=== PATIENT | male | born 1940 | race Caucasian/White ===

== ENCOUNTER 2019-07-15 12:20 | Emergency (ER) | payer MEDICARE, SELFPAY ==
[2019-07-15] VITALS (22 sets, daily range): BP systolic 53–109; BP diastolic 31–63; PULSE 55–64; RESP 10–28; O2SAT 81–100; BMI 23.0
[2019-07-15] MEDS: sodium chloride 0.9% 1,000 ML 999 ML IV (12:20)
--- NOTE | 2019-07-15 12:22 | ED_ITS ---
Entered by Rajwinder Julien, acting as scribe for HPI - SOB/Dyspnea General: Chief Complaint: Cardiac Arrest/CPR Stated Complaint: post code Time Seen by Provider: 07/15/19 12:24 Source: patient and EMS Mode of arrival: EMS History of Present Illness: HPI Narrative: 78 yo male presents with aspiration at longterm. per EMS the pt was drinking milk and got to much then choked. per EMS the longterm started CPR for 2 minutes, when they arrived he was alert and talking. per pt is is not short of breath. per EMS his sats was low. EMS denied any other symptoms. MD elicited complaint: shortness of breath (with choking on milk) Pertinent past history: aspiration Onset (ago): hour(s) (just [employer]) Context: choking/aspiration (got to much milk) Timing: constant Severity: moderate Exacerbating factors: other Relieving factors: oxygen and upright position Treatment prior to arrival: CPR (2 minutes by nursing staff per EMS) Review of Systems General: Reports: 10 or more systems reviewed and unremarkable except as noted in History and below PFSH ED PFSH: Statuses (acute, chronic, etc) shown below reflect problem list status as previously entered and may not be historically accurate Social History Smoking and tobacco status: unknown if ever smoked Physical Exam Const: COMMON NORMALS: average body habitus, no limitations, healthy appearing, alert and well nourished HENMT: COMMON NORMALS: normocephalic, atraumatic, hearing grossly normal bilaterally, external ears normal, EAC's normal, TM's normal bilaterally, Normal external nose present, Normal nasal mucous membranes and turbinates present, moist oral mucous membranes, oropharynx normal, dentition normal and gingiva normal HEAD & SCALP: normocephalic and atraumatic NOSE: Normal external nose present and Normal nasal mucous membranes and turbinates present EXTERNAL EAR: Yes external ears normal EXTERNAL AUDITORY CANAL: EAC's normal TYMPANIC MEMBRANE: TM's normal bilaterally Eye: COMMON NORMALS: Equal, round and reactive pupils present, EOMs intact bilaterally, conjunctivae normal, no scleral icterus, no papilledema, normal visual andrews by confrontation and fundi normal bilaterally CONJUNCTIVA: Yes conjunctivae normal PUPIL: Yes Equal, round and reactive pupils present DIRECT OPHTHALMOSCOPY: Yes no papilledema and Yes fundi normal bilaterally Neck/C-Spine: COMMON NORMALS: full ROM, no lymphadenopathy, supple, no meningeal signs, no JVD, Thyroid normal and No carotid bruits THYROID: Thyroid normal Chest: COMMONS NORMALS: normal inspection of the chest and normal palpation of entire chest wall Resp: COMMON NORMALS: normal respiratory effort, No retractions, No use of accessory muscles, clear to auscultation bilaterally and percussion normal AUSCULTATION: clear to auscultation bilaterally PERCUSSION: percussion normal Cardio: COMMON NORMALS: no JVD, regular rate, regular rhythm, S1 normal heart sound present, S2 normal heart sound present, No gallops present (Cardio), No clicks present (Cardio), No murmurs present (Cardio), No rub (Cardio) and Peripheral pulses 2+ throughout RATE: regular rate RHYTHM: regular rhythm HEART SOUNDS: S1 normal heart sound present and S2 normal heart sound present PERIPHERAL PULSES: Peripheral pulses 2+ throughout GI: COMMON NORMALS: Normal to inspection, nondistended, normoactive bowel sounds present, Soft to palpation, non-tender, No hepatosplenomegaly present, no masses and no bruits PALPATION: Yes Soft to palpation and Yes No hepatosplenomegaly present : COMMON NORMALS: Yes no CVA tenderness BLADDER/KIDNEY EXAM: Yes no CVA tenderness Back/Pelvis: COMMON NORMALS: no CVA tenderness, thoracic and lumbar spine normal to inspection, no thoracic nor lumbar tenderness, thoraco-lumbar ROM normal and straight leg raise negative bilaterally Extremity: COMMON NORMALS: normal to inspection, full ROM, capillary refill normal, no joint enlargement, no clubbing, cyanosis or edema, no calf tenderness and no pedal edema Neuro: SENSORIUM/ORIENTATION: Yes alert MENINGEAL SIGNS: Yes no meningeal signs Skin: COMMON NORMALS: no rashes or lesions noted, no wounds, turgor normal, no jaundice, no petechiae and no mottling GENERAL SKIN EXAM: no rashes or lesions noted and turgor normal Course Vital Signs: Vital signs: Vital Signs Pulse Rate 60 07/15/19 15:00 Respiratory Rate 16 07/15/19 15:00 Blood Pressure 83/53 07/15/19 15:00 Pulse Oximetry 94 07/15/19 15:00 MDM - SOB/Dyspnea Lab Data: Labs: Lab Results 01/14/20 01/14/20 01/14/20 Range/Units 12:10 12:10 12:10 WBC 4.2 (4.0-10.0) 10^3/ uL RBC 2.71 L (4.1-5.3) 10^6/u L Hgb 8.9 L (11.7-16.6) g/dL Hct 28.9 L (42.0-52.0) % MCV 106.6 H (80-94) fL MCH 32.8 (28.0-34.0) pg MCHC 30.8 (30.0-36.0) g/dL RDW 18.5 H (12.1-15.1) % Plt Count 318 (130-400) 10^3/c mm MPV 9.9 (7.4-10.4) fL Neut % (Auto) 58.4 % Lymph % (Auto) 33.8 % [place] % (Auto) 5.7 % Eos % (Auto) 1.2 % Baso % (Auto) 0.2 % Neut # (Auto) 2.5 (1.8-7.7) 10^3/u L Lymph # (Auto) 1.4 (0.8-4.8) 10^3/u L [place] # (Auto) 0.2 (0.2-0.9) 10^3/u L Eos # (Auto) 0.1 (0.0-0.8) 10^3/u L Baso # (Auto) 0.0 (0.0-0.1) 10^3/u L Nucleated RBC % (a uto) 0 % Nucleated RBCs # 0.0 /100WBC Specimen Type Sample Site ABG pH (7.35-7.45) ABG pCO2 (35-45) mmHg ABG pO2 (80.0-100.0) mmH g ABG HCO3 (22-26) mmol/L ABG Base Excess (-2.0-2.0) mmol/ L Marcial Test Hematocrit (42-52) % Respiration Rate % FiO2 % Tidal Volume PEEP cmH20 Client Engagement Manager ID Sodium 137 (136-145) mmol/L Potassium 4.0 (3.5-5.1) mmol/L Chloride 101 (98-107) mmol/L Carbon Dioxide 24 (22-29) mmol/L Anion Gap 16.0 (5-19) BUN 36 H (8-23) mg/dL Creatinine 1.8 H (0.7-1.2) mg/dL Glucose 153 H (74-106) mg/dL Lactate (0.5-2.2) mmol/L Calcium 8.7 L (8.8-10.2) mg/Dl Total Bilirubin 0.7 (0.15-1.2) mg/dL AST 35 (0-40) U/L ALT 20 (0-41) U/L Alkaline Phosphata se 256 H (40-130) IU/L Troponin T Baselin e 118 H* (0-15) ng/mL Troponin T 120 Min match-e-be-[place] band (0-15) ng/mL Delta Troponin T (0-10) ABS# NT-Pro-B Natriuret Pep 3208 H (0-450) pg/mL Total Protein 6.2 L (6.6-8.7) g/dL Albumin 2.7 L (3.5-5.2) g/dL Globulin 3.5 (1.3-4.6) g/dL 07/15/19 07/15/19 07/15/19 Range/Units 13:00 13:26 13:57 WBC (4.0-10.0) 10^3/ uL RBC (4.1-5.3) 10^6/u L Hgb (11.7-16.6) g/dL Hct (42.0-52.0) % MCV (80-94) fL MCH (28.0-34.0) pg MCHC (30.0-36.0) g/dL RDW (12.1-15.1) % Plt Count (130-400) 10^3/c mm MPV (7.4-10.4) fL Neut % (Auto) % Lymph % (Auto) % [place] % (Auto) % Eos % (Auto) % Baso % (Auto) % Neut # (Auto) (1.8-7.7) 10^3/u L Lymph # (Auto) (0.8-4.8) 10^3/u L [place] # (Auto) (0.2-0.9) 10^3/u L Eos # (Auto) (0.0-0.8) 10^3/u L Baso # (Auto) (0.0-0.1) 10^3/u L Nucleated RBC % (a uto) % Nucleated RBCs # /100WBC Specimen Type Arterial Sample Site Radial, left ABG pH 7.35 (7.35-7.45) ABG pCO2 40.3 (35-45) mmHg ABG pO2 64.9 L (80.0-100.0) mmH g ABG HCO3 22.4 (22-26) mmol/L ABG Base Excess -2.9 L (-2.0-2.0) mmol/ L Marcial Test N/a Hematocrit 24.9 L (42-52) % Respiration Rate 16.0 % FiO2 60.0 % Tidal Volume 0.5 PEEP 8.0 cmH20 Client Engagement Manager ID [email or web address] Sodium (136-145) mmol/L Potassium (3.5-5.1) mmol/L Chloride (98-107) mmol/L Carbon Dioxide (22-29) mmol/L Anion Gap (5-19) BUN (8-23) mg/dL Creatinine (0.7-1.2) mg/dL Glucose (74-106) mg/dL Lactate 2.2 (0.5-2.2) mmol/L Calcium (8.8-10.2) mg/Dl Total Bilirubin (0.15-1.2) mg/dL AST (0-40) U/L ALT (0-41) U/L Alkaline Phosphata se (40-130) IU/L Troponin T Baselin e (0-15) ng/mL Troponin T 120 Min [place] 96.86 H (0-15) ng/mL Delta Troponin T -21.14 L (0-10) ABS# NT-Pro-B Natriuret Pep (0-450) pg/mL Total Protein (6.6-8.7) g/dL Albumin (3.5-5.2) g/dL Globulin (1.3-4.6) g/dL Discharge Plan Discharge Patient Disposition: Xfer Other Condition: Stable Referrals: Shaan Love MD [Primary Care Provider] - Discharge Date/Time: 07/15/19 16:09 Coding Level of Care Code ED Bow Machine Operator for Chg Fwd The documentation recorded by the Wily rai Bridget Annette, accurately reflects the service I personally performed and the decisions made by Clara uribe Donald P, DO Jul 15, 2019 12:20
--- NOTE | 2019-07-15 12:24 | XRR_ITS ---
PROCEDURE INFORMATION: Exam: XR Chest, 1 View Exam date and time: 07/15/2019 12:50 PM Age: 78 years old Clinical indication: Condition or disease; Other: Aspiration TECHNIQUE: Imaging protocol: XR of the chest Views: 1 view. COMPARISON: No relevant prior studies available. FINDINGS: Tubes, catheters and devices: There is an endotracheal tube present with the tip 2.4 cm above the maykel. There is a left subclavian combination biventricular pacemaker AICD device. Lungs: There is bilateral central bronchial wall thickening and perihilar haziness. Increase in the interstitial markings in both lung bases. Pleural space: No pleural effusion or pneumothorax. Heart/Mediastinum: The heart is enlarged. Prior CABG. Bones/joints: Prior median sternotomy. There is a curvature of the thoracolumbar junction convex to the right. Deformity of the proximal left humerus is compatible with prior dislocation and Hill-Sachs deformity. XR/XR chest 1V portable [id number] IMPRESSION: Interstitial pulmonary edema or pneumonitis.
--- NOTE | 2019-07-15 12:26 | ECG_ITS ---
Measurements Intervals [place] Rate: 60 P: 163 AL: 168 QRS: 266 QRSD: 208 T: 83 QT: 593 QTc: 593 ELECTRONIC ATRIAL PACEMAKER ELECTRONIC VENTRICULAR PACEMAKER ABNORMAL RHYTHM ECG INTERPRETATION BASED ON A DEFAULT AGE OF 40 YEARS No previous ECG available for comparison [email or web address]
[2019-07-15] MEDS: succinylcholine 20 mg/mL SDV 10mL 150 MG IVP (12:28)
[2019-07-15] MEDS: vecuronium 10 mg SDV IV ×2 (12:31→16:06)
[2019-07-15 12:57] LABS: Basophils % 0.2 %; Eosinophils # 0.1 10^3/uL (0.0-0.8); Eosinophils % 1.2 %; Hematocrit 28.9 % (42.0-52.0); Hemoglobin 8.9 g/dL (11.7-16.6); Lymphocytes # 1.4 10^3/uL (0.8-4.8); Lymphocytes % 33.8 %; Mean Corpuscular HGB Conc 30.8 g/dL (30.0-36.0); Mean Corpuscular Hemoglobin 32.8 pg (28.0-34.0); Mean Corpuscular Volume 106.6 fL (80-94); Mean Platelet Volume 9.9 fL (7.4-10.4); Monocytes # 0.2 10^3/uL (0.2-0.9); Monocytes % 5.7 %; Neutrophils # 2.5 10^3/uL (1.8-7.7); Neutrophils % 58.4 %; Nucleated Red Blood Cells % 0 %; Platelet Count 318 10^3/cmm (130-400); Red Blood Count 2.71 10^6/uL (4.1-5.3); Red Cell Distribution Width 18.5 % (12.1-15.1); White Blood Count 4.2 10^3/uL (4.0-10.0)
[2019-07-15] MEDS: ipratropium-albuterol 3 mL Neb INHALATION (13:04)
--- NOTE | 2019-07-15 13:07 | PC.NURSE ---
Patient arrived at 1220 via EMS. Patient has unstable vitals and unable to control his own airway secretions. Oral airway suctioned. Gag reflex absent. Advanced airway equipment placed at beside. Patient placed on IV vasopressor. IV fluids started at bolus rate. Additional large bore line placed in right AC. Patient responding to interventions at this time. See documentation.
[2019-07-15 13:20] LABS: Lactate (Lactic Acid level) 2.2 mmol/L (0.5-2.2)
[2019-07-15] MEDS: vancomycin 1,000 MG in sodium chloride 0.9% 250 ML 250 MG IV (13:20)
[2019-07-15 13:21] LABS: Alanine Aminotransferase 20 U/L (0-41); Albumin Level 2.7 g/dL (3.5-5.2); Alkaline Phosphatase 256 IU/L (40-130); Aspartate Amino Transferase 35 U/L (0-40); Blood Urea Nitrogen 36 mg/dL (8-23); Calcium 8.7 mg/Dl (8.8-10.2); Carbon Dioxide 24 mmol/L (22-29); Chloride 101 mmol/L (98-107); Globulin 3.5 g/dL (1.3-4.6); Glucose 153 mg/dL (74-106); NT Pro B Type Natriuretic Pept 3208 pg/mL (0-450); Sodium 137 mmol/L (136-145); Total Bilirubin 0.7 mg/dL (0.15-1.2); Total Protein 6.2 g/dL (6.6-8.7)
[2019-07-15 13:22] LABS: Troponin(5th) Baseline 118 ng/mL (0-15)
[2019-07-15] MEDS: clindamycin 600 MG/50 ML PREMIX 100 MG IV (13:26)
[2019-07-15 13:38] LABS: ABG PCO2 40.3 mmHg (35-45); ABG PH Result 7.35 (7.35-7.45); Arterial Blood Gas Hematocrit 24.9 % (42-52); Base Excess ABG -2.9 mmol/L (-2.0-2.0); Blood Gas Sample Site Radial, left; Blood Gas Sample Type Arterial; Blood Gas Tidal Volume 0.5; HCO3 ABG 22.4 mmol/L (22-26); PO2 ABG 64.9 mmHg (80.0-100.0)
[2019-07-15 14:41] LABS: Troponin 5 2HR 96.86 ng/mL (0-15)
[2019-07-15] MEDS: sodium chloride 0.9% 250 ML 75 ML IV (14:59)
[2019-07-15] MEDS: midazolam 1 mg/mL INJ 2 mL 2 MG IVP (16:07)
== END 2019-07-15 16:09 | disposition other institution (70) ==
PROVIDERS: Emergency Provider Family Medicine; Family Provider Family Medicine; PCP Family Medicine
DX: T17.998A Other foreign object in respiratory tract, part unspecified causing other injury, initial encounter (principal); X58.XXXA Exposure to other specified factors, initial encounter
CPT/HCPCS: 36415; 36600; 71045; 80053; 82803; 83605; 83880; 84484; 85025; 87040; 93005; 94002; 94640; 94799; 96360; 96361; 96365; 96366; 96374; 99283; J0330; J2250; J3370; J3490; J7030; J7050